=== PATIENT | female | born 1930 | race African-American/Black ===

== ENCOUNTER 2017-08-29 18:36 | Emergency (ER) | payer MEDICARE, BC ==
[~2017-08-29] VITALS: Ht 154.9 cm; Wt 72.6 kg
[2017-08-29] MEDS ORDERED: ASPIRIN 81 MG CHEW TAB PO ONE (19:15)
[2017-08-29 20:07] LABS: INR 0.97; PROTHROMBIN TIME 12.1 seconds (11.9-14.5)
[2017-08-29 20:11] LABS: BASOPHILS % 0.3 % (0.0-1.0); EOSINOPHILS % 0.3 % (0.0-6.0); HEMATOCRIT 38.6 % (34.2-44.1); HEMOGLOBIN 14.6 g/dL (12.0-16.0); LYMPHOCYTES # (AUTO) 1.4 (1.0-3.2); LYMPHOCYTES % 18.3 % (18.0-39.1); MEAN CORPUSCULAR HEMOGLOBIN 30.3 pg (28-32); MEAN CORPUSCULAR HGB CONC 37.8 g/dL (31-35); MEAN CORPUSCULAR VOLUME 80.1 fL (81-99); MONOCYTES # (AUTO) 0.3 (0.2-0.8); MONOCYTES % 4.4 % (4.4-11.3); NEUTROPHILS # (AUTO) 5.7 (2.1-6.9); NEUTROPHILS % 76.3 % (38.7-80.0); PLATELET COUNT 267 x10e3/uL (140-360); RED BLOOD COUNT 4.82 x10e6/uL (3.6-5.1); RED CELL DISTRIBUTION WIDTH 13.8 % (11.7-14.4)
[2017-08-29 20:17] LABS: ALBUMIN 3.8 g/dL (3.5-5.0); ANION GAP 18.5 mmol/L (8-16); CALCIUM 9.3 mg/dL (8.4-10.2); CREATININE, SERUM 1.08 mg/dL (0.57-1.11); MAGNESIUM 1.6 MG/DL (1.3-2.1); POTASSIUM 3.5 mmol/L (3.5-5.1)
--- NOTE | 2017-08-29 20:24 | Diagnostic Imaging Report ---
EXAMINATION: Head CT without contrast. HISTORY:Dizziness, high blood pressure. COMPARISON:None. TECHNIQUE: Multidetector axial images were obtained from the foramen magnum to the vertex without contrast. The images were reconstructed using brain and bone algorithms. Thin section brain images were reformatted into coronal and sagittal planes. Intravenous contrast: None IMAGE QUALITY: Acceptable. FINDINGS: Skull/scalp: No abnormality. Parenchyma: Nonspecific few, scattered supratentorial white matter patchy hypodensity are likely related to small vessel ischemic changes. No acute hemorrhage, mass or acute major vascular territorial infarct. Arteries: No density suggestive of thrombosis. Dural sinuses: No abnormal density suggestive of thrombosis. Ventricles: Mild compensated dilatation due to volume loss. No hydrocephalus. Extra-axial spaces: No abnormal density Brain volume: Generalized age-related cerebral volume loss. Craniocervical junction: No mass, Chiari malformation, or basilar invagination. Sella: No mass. Paranasal/mastoid sinuses: Imaged portions unremarkable. IMPRESSION: No acute intracranial abnormality, particularly no acute hemorrhage, mass or acute major vascular territorial infarct. Mild supratentorial white matter microvascular ischemic changes and generalized age-related cerebral volume loss. Signed by: Dr. Brenda Darnell M.D. on 08/29/2017 8:21 PM
--- NOTE | 2017-08-29 20:29 | Diagnostic Imaging Report ---
EXAM: CHEST SINGLE (PORTABLE), AP 1 view INDICATION: High blood pressure, dizzy COMPARISON: None FINDINGS: LINES/TUBES: None LUNGS: No consolidations or edema. PLEURA: No effusions or pneumothorax. HEART AND MEDIASTINUM: Normal size and contour. BONES AND SOFT TISSUES: No acute findings. Surgical clips right upper quadrant of the abdomen. IMPRESSION: No acute thoracic abnormality. Signed by: Dr. Enedelia Foy M.D. on 08/29/2017 8:25 PM
[2017-08-29 20:41] LABS: CREATINE KINASE MB 1.7 ng/mL (0-5.0); THYROID STIMULATING HORMONE 0.735 uIU/mL (0.350-4.940)
[2017-08-29] MEDS ORDERED: LOSARTAN-HCTZ1 EAC2 PO (21:33)
[2017-08-29] MEDS ORDERED: OMEPRAZOLE40 MG PO (21:33)
[2017-08-29] MEDS ORDERED: ARICEPT5 MG PO (21:33)
[2017-08-29] MEDS ORDERED: METOPROLOL TART50 MG PO (21:33)
[2017-08-29] MEDS ORDERED: ULTRAM50 MG PO (21:33)
[2017-08-29] MEDS ORDERED: ASPIRIN81 MG PO (21:34)
[2017-08-29 22:09] LABS: BILIRUBIN,URINE NEGATIVE (NEGATIVE); CLARITY,URINE CLEAR (CLEAR); COLOR,URINE YELLOW (YELLOW); KETONES,URINE NEGATIVE (NEGATIVE); LEUKOCYTE ESTERASE ,URINE 2+ (NEGATIVE); NITRITE,URINE NEGATIVE (NEGATIVE); PROTEIN,URINE DIPSTICK NEGATIVE (NEGATIVE); URINE UROBILINOGEN 0.2 mg/dL (0.2 - 1)
[2017-08-29 22:36] LABS: BACTERIA,URINE RARE /HPF; EPITHELIAL CELLS,URINE RARE /LPF; RBC,URINE 0-5 /HPF (0-5); TRANSITIONAL EPI CELLS,URINE FEW
[2017-08-29 22:38] VITALS: BP 133/82
== END 2017-08-29 23:40 | disposition home or self-care (01) ==
LOC: ER 18:36
DX: R42 Dizziness and giddiness (principal); R53.1 Weakness; R11.2 Nausea with vomiting, unspecified; N30.90 Cystitis, unspecified without hematuria; F03.90 Unspecified dementia, unspecified severity, without behavioral disturbance, psychotic disturbance, mood disturbance, and anxiety; I10 Essential (primary) hypertension; K21.9 Gastro-esophageal reflux disease without esophagitis
CPT/HCPCS: 36415; 70450; 71045; 80053; 81001; 82550; 82553; 83735; 83880; 84443; 84484; 85025; 85610; 85730; 87400; 93005; 99284

== ENCOUNTER 2017-11-04 13:39 | Inpatient (IN) | payer MEDICARE, BC ==
[~2017-11-04] VITALS: Ht 154.9 cm; Wt 70.4 kg
[~2017-11-04 13:39] MED LIST: ARICEPT5 MG PO; ASPIRIN81 MG PO; LOSARTAN-HCTZ1 EAC2 PO; METOPROLOL TART50 MG PO; OMEPRAZOLE40 MG PO; ULTRAM50 MG PO
--- OUTSIDE RECORDS SUMMARY | 2017-11-04 13:54 | XMS REPORT ---
[facility] Address Unknown Phone Unavailable Care Team Providers Care Procurement Officer Name Role Phone KHUSHBOO HILL Unavailable Unavailable Problems This patient has no known problems. Allergies, Adverse Reactions, Alerts This patient has no known allergies or adverse reactions. Medications This patient has no known medications. Results Test Description Test Time Test Comments Text Results Atomic Results Result Comments CT BRAIN WO [place] [address] Patient Name: GUILHERME BARROW MR #: [id number] : 1930 Age/Sex: 87/F Req #: [id number] Adm Physician: Ordered by: LAWRENCE HERNANDEZ AUTOMOTIVE MANAGER Report #: [id number] Location: ER Room/Bed: Procedure: [id number] CT/CT BRAIN WO Exam Date: 08/29/17 Exam Time: 1999 REPORT STATUS: Signed EXAMINATION: Head CT without contrast. HISTORY:Dizziness, high blood pressure. COMPARISON:None. TECHNIQUE: Multidetector axial images were obtained from the foramen magnum to the vertex without contrast. The images were reconstructed using brain and bone algorithms. Thin section brain images were reformatted into coronal and sagittal planes. Intravenous contrast: None IMAGE QUALITY: Acceptable. FINDINGS: Skull/scalp: No abnormality. Parenchyma: Nonspecific few, scattered supratentorial white matter patchy hypodensity are likely related to small vessel ischemic changes. No acute hemorrhage, mass or acute major vascular territorial infarct. Arteries: No density suggestive of thrombosis. Dural sinuses: No abnormal density suggestive of thrombosis. Ventricles: Mild compensated dilatation due to volume loss. No hydrocephalus. Extra-axial spaces: No abnormal density Brain volume: Generalized age-related cerebral volume loss. Craniocervical junction: No mass, Chiari malformation, or basilar invagination. Sella: No mass. Paranasal/mastoid sinuses: Imaged portions unremarkable. IMPRESSION: No acute intracranial abnormality, particularly no acute hemorrhage, mass or acute major vascular territorial infarct. Mild supratentorial white matter microvascular ischemic changes and generalized age -related cerebral volume loss. Signed by: Dr. Brenda Darnell M.D. on 2017 8:21 PM Dictated By: BRENDA DARNELL MD 20 Transcribed By: YOBANY on 08/29/172020 COPY TO: LAWRENCE HERNANDEZ NP CHEST SINGLE (PORTABLE) [place] [address] Patient Name: GUILHERME BARROW MR #: [id number] : 1930 Age/Sex: 87/F Req #: [id number] Adm Physician: Ordered by: LAWRENCE HERNANDEZ AUTOMOTIVE MANAGER Report # : [id number] Location: ER Room/Bed: Procedure: [id number] DX/CHEST SINGLE (PORTABLE) Exam Date: 08/29/17 Exam Time: 1957 REPORT STATUS: Signed EXAM: CHEST SINGLE (PORTABLE), AP 1 view INDICATION: High blood pressure, dizzy COMPARISON: None FINDINGS: LINES/TUBES: None LUNGS: No consolidations or edema. PLEURA: No effusions or pneumothorax. HEART AND MEDIASTINUM: Normal size and contour. BONES AND SOFT TISSUES: No acute findings. Surgical clips right upper quadrant of the abdomen. IMPRESSION: No acute thoracic abnormality. Signed by: Dr. Chris Foy M.D. on 08/29/2017 8:25 PM Dictated By: CHRIS FOY MD 24 Transcribed By: YOBANY on 08/29/172024 COPY TO: LAWRENCE HERNANDEZ NP
--- OUTSIDE RECORDS SUMMARY | 2017-11-04 13:54 | XMS REPORT | Continuity of Care Document ---
Author Author [facility] Organization [facility] Address [address] [place] [address] Phone Unavailable Care Team Providers Care Livestock Dealer Name Role Phone SONAM CORONADO (NON STAFF) PCP Insurance Providers Guarantor Leandra Ennis Address [address] [place] [address] Payer Medicare A & B Policy Number [id number] Subscriber's Name Leandra Ennis Relationship 18 Self / Same As Patient Effective Date 94 Payer [employer] Policy Number [id number] Subscriber's Name Leandra Ennis Relationship 18 Self / Same As Patient Group Number [id number] Effective Date 89 Advance Directives Directive Response Recorded Date/Time Does the patient have an advance directive? No 05/31/13 1:14pm If yes, is advance directive on file with [facility]? No 05/31/13 1:14pm If not on file with [facility] will patient provide a copy? No 05/31/13 1:14pm Do you have a Directive to Physician? No 08/29/17 8:00pm Do you have a Medical Power of Core Composer Feeder? No 08/29/17 8:00pm Do you have an out of hospital Do Not Resuscitate Order? No 08/29/17 8:00pm Do you have any special needs we should be aware of? No 08/29/17 8:00pm Do you have a support person here with you today? Yes 08/29/17 8:00pm Did patient receive Notice of Privacy Practices? Yes 08/29/17 8:00pm Did patient receive patient rights and responsibilities? Yes 08/29/17 8:00pm Problems No problem information available. Medications Current Home Medications Medication Dose Units Route Directions Days Qty Instructions Start Date Aspirin 81 Mg Tab.chew 81 Mg Oral Daily Donepezil Hcl (Aricept) 5 Mg Tablet 10 Mg Oral Bedtime 60 Tab Losartan/Hydrochlorothiazide (Losartan-Hctz 100-12.5 Mg Tab) 1 Each Tablet 1 Tab Oral Daily Metoprolol Tartrate 50 Mg Tablet 50 Mg Oral Twice A Day Omeprazole 40 Mg Capsule.dr 20 Mg Oral Daily Tramadol Hcl (Ultram) 50 Mg Tablet 50 Mg Oral Four Times Daily as needed for Pain Social History Smoking Status Start Date Stop Date Never Smoker Hospital Discharge Instructions No hospital discharge instruction information available. Plan of Care Discharge Date 08/29/17 11:40pm Disposition HOME, SELF-CARE Condition at Discharge Stable Instructions/Education Provided Hypertension Urinary Tract Infection - Women Prescriptions See Medication Section Referrals SONAM CORONADO (NON STAFF) Address: [address] [place] [address] Additional Instructions/Education REST; DRINK PLENTY OF WATER; TAKE MEDICATIONS PRESCRIBED; FOLLOW UP WITH YOUR PCP; RETURN TO ER NEEDED; Functional Status No functional status information available. Allergies, Adverse Reactions, Alerts Allergen Type Severity Reaction Status Last Updated Penicillin Allergy Unknown Active 08/29/17 Immunizations No immunization information available. Vital Signs Acute Vital Signs Vital Response Date/Time Pulse Pulse Rate (adult) 52 bpm (60 - 90) 08/29/2017 10:38pm Respiratory Rate 18 bpm (12 - 24) 08/29/2017 10:38pm Blood Pressure 133/82 mm Hg 08/29/2017 10:38pm Height 5 ft 1 in 08/29/2017 6:37pm Weight 160 lb 08/29/2017 6:37pm Body Mass Index 30.2 kg/m^2 08/29/2017 6:37pm Results Laboratory Results Test Name Result Units Flags Reference Collection Date/Time Result Date/ Time Comments White Blood Count 7.45 x10e3/uL 4.8-10.8 08/29/2017 7:00pm 08/29/2017 8 :17pm Red Blood Count 4.82 x10e6/uL 3.6-5.1 08/29/2017 7:00pm 08/29/2017 8: 17pm Hemoglobin 14.6 g/dL 12.0-16.0 08/29/2017 7:00pm 08/29/2017 8:17pm Hematocrit 38.6 % 34.2-44.1 08/29/2017 7:00pm 08/29/2017 8:17pm Mean Corpuscular Volume 80.1 fL L 81-99 08/29/2017 7:00pm 08/29/2017 8: 17pm Mean Corpuscular Hemoglobin 30.3 pg 28-32 08/29/2017 7:00pm 08/29/2017 8:17pm Mean Corpuscular Hemoglobin Concent 37.8 g/dL H 31-35 08/29/2017 7:00pm 08/29/2017 8:17pm Red Cell Distribution Width 13.8 % 11.7-14.4 08/29/2017 7:00pm 2017 8:17pm Platelet Count 267 x10e3/uL 140-360 08/29/2017 7:00pm 08/29/2017 8: 17pm Neutrophils (%) (Auto) 76.3 % 38.7-80.0 08/29/2017 7:00pm 08/29/2017 8: 17pm Lymphocytes (%) (Auto) 18.3 % 18.0-39.1 08/29/2017 7:00pm 08/29/2017 8: 17pm Monocytes (%) (Auto) 4.4 % 4.4-11.3 08/29/2017 7:00pm 08/29/2017 8: 17pm Eosinophils (%) (Auto) 0.3 % 0.0-6.0 08/29/2017 7:00pm 08/29/2017 8: 17pm Basophils (%) (Auto) 0.3 % 0.0-1.0 08/29/2017 7:00pm 08/29/2017 8:17pm IM GRANULOCYTES % 0.4 % 0.0-1.0 08/29/2017 7:00pm 08/29/2017 8:17pm Neutrophils # (Auto) 5.7 2.1-6.9 08/29/2017 7:00pm 08/29/2017 8:17pm Lymphocytes # (Auto) 1.4 1.0-3.2 08/29/2017 7:00pm 08/29/2017 8:17pm Monocytes # (Auto) 0.3 0.2-0.8 08/29/2017 7:00pm 08/29/2017 8:17pm Eosinophils # (Auto) 0.0 0.0-0.4 08/29/2017 7:00pm 08/29/2017 8:17pm Basophils # (Auto) 0.0 0.0-0.1 08/29/2017 7:00pm 08/29/2017 8:17pm Absolute Immature Granulocyte (auto 0.03 x10e3/uL 0-0.1 08/29/2017 7: 00pm 08/29/2017 8:17pm Prothrombin Time 12.1 seconds 11.9-14.5 08/29/2017 7:00pm 08/29/2017 8: 08pm Prothromb Time International Ratio 0.97 08/29/2017 7:00pm 2017 8:08pm Oral Anticoagulant Therapy INR Values: 1. Low Intensity Therapy 1.5 - 2.0 2. Moderate Intensity Therapy 2.0 - 3.0 3. High Intensity Therapy(1) 2.5 - 3.5 4. High Intensity Therapy(2) 3.0 - 4.0 5. Panic Value INR > 5.0 Activated Partial Thromboplast Time 23.0 seconds L 23.8-35.5 08/29/2017 7 :00pm 08/29/2017 8:52pm Urine Color YELLOW YELLOW 08/29/2017 9:51pm 08/29/2017 10:14pm Urine Clarity CLEAR CLEAR 08/29/2017 9:51pm 08/29/2017 10:14pm Urine Specific [place] 1.005 L 1.010-1.025 08/29/2017 9:51pm 2017 10:14pm Urine pH 7 5 - 7 08/29/2017 9:51pm 08/29/2017 10:14pm Urine Leukocyte Esterase 2+ H NEGATIVE 08/29/2017 9:51pm 08/29/2017 10 :14pm Urine Nitrite NEGATIVE NEGATIVE 08/29/2017 9:51pm 08/29/2017 10:14pm Urine Protein NEGATIVE NEGATIVE 08/29/2017 9:51pm 08/29/2017 10:14pm Urine Glucose (UA) NEGATIVE NEGATIVE 08/29/2017 9:51pm 08/29/2017 10: 14pm Urine Ketones NEGATIVE NEGATIVE 08/29/2017 9:51pm 08/29/2017 10:14pm Urine Urobilinogen 0.2 mg/dL 0.2 - 1 08/29/2017 9:51pm 08/29/2017 10: 14pm Urine Bilirubin NEGATIVE NEGATIVE 08/29/2017 9:51pm 08/29/2017 10: 14pm Urine Blood NEGATIVE NEGATIVE 08/29/2017 9:51pm 08/29/2017 10:14pm Urine WBC 11-20 /HPF H 0-5 08/29/2017 9:51pm 08/29/2017 10:36pm Urine RBC 0-5 /HPF 0-5 08/29/2017 9:51pm 08/29/2017 10:36pm Urine Bacteria RARE /HPF NONE 08/29/2017 9:51pm 08/29/2017 10:36pm Urine Epithelial Cells RARE /LPF NONE 08/29/2017 9:51pm 08/29/2017 10: 36pm Urine Transitional Epithelial Cells FEW H NONE 08/29/2017 9:51pm 08/29 10:36pm Sodium Level 136 mmol/L 136-145 08/29/2017 7:00pm 08/29/2017 8:19pm Potassium Level 3.5 mmol/L 3.5-5.1 08/29/2017 7:00pm 08/29/2017 8:19pm Chloride Level 97 mmol/L L 98-107 08/29/2017 7:00pm 08/29/2017 8:19pm Influenza Virus Types A,B Antigen NEGATIVE NEGATIVE 08/29/2017 9:51pm 08/29/2017 10:23pm Carbon Dioxide Level 24 mmol/L 22-29 08/29/2017 7:00pm 08/29/2017 8: 19pm Anion Gap 18.5 mmol/L H 8-16 08/29/2017 7:00pm 08/29/2017 8:19pm Blood Urea Nitrogen 18 mg/dL 7-08/29/2017 7:00pm 08/29/2017 8:19pm Creatinine 1.08 mg/dL 0.57-1.11 08/29/2017 7:00pm 08/29/2017 8:19pm BUN/Creatinine Ratio 17 6-25 08/29/2017 7:00pm 08/29/2017 8:19pm Estimat Glomerular Filtration Rate 58 ML/MIN L 60- 08/29/2017 7:00pm 08/2017 8:19pm Ranges were taken from the National Kidney Disease Education Program and the National Kidney Foundation literature. Reference ranges: 60 or greater: Normal 16-59 (for 3 consecutive months): Chronic kidney disease 15 or less: Kidney failure Glucose Level 172 mg/dL H 74-118 08/29/2017 7:00pm 08/29/2017 8:19pm Calcium Level 9.3 mg/dL 8.4-10.2 08/29/2017 7:00pm 08/29/2017 8:19pm Magnesium Level 1.6 MG/DL 1.3-2.1 08/29/2017 7:00pm 08/29/2017 8:19pm Total Bilirubin 0.6 mg/dL 0.2-1.2 08/29/2017 7:00pm 08/29/2017 8:19pm Aspartate Amino Transf (AST/SGOT) 22 IU/L 5-34 08/29/2017 7:00pm 2017 8:19pm Alanine Aminotransferase (ALT/SGPT) 11 IU/L 0-55 08/29/2017 7:00pm 08/2017 8:19pm Total Protein 7.6 g/dL 6.5-8.1 08/29/2017 7:00pm 08/29/2017 8:19pm Albumin 3.8 g/dL 3.5-5.0 08/29/2017 7:00pm 08/29/2017 8:19pm Globulin 3.8 g/dL H 2.3-3.5 08/29/2017 7:00pm 08/29/2017 8:19pm Albumin/Globulin Ratio 1.0 0.8-2.0 08/29/2017 7:00pm 08/29/2017 8: 19pm Alkaline Phosphatase 84 IU/L 40-150 08/29/2017 7:00pm 08/29/2017 8: 19pm B-Type Natriuretic Peptide 12.4 pg/mL 0-100 08/29/2017 7:00pm 2017 8:43pm Creatine Kinase 70 IU/L 29-168 08/29/2017 7:00pm 08/29/2017 8:19pm Creatine Kinase MB 1.70 ng/mL 0-5.0 08/29/2017 7:00pm 08/29/2017 8: 42pm Troponin I 0.013 ng/mL 0-0.300 08/29/2017 7:00pm 08/29/2017 8:42pm Thyroid Stimulating Hormone (TSH) 0.735 uIU/mL 0.350-4.940 08/29/2017 7: 00pm 08/29/2017 8:42pm Procedures Procedure Status Date Provider(s) Computed tomography of brain without radiopaque contrast Active 08/29/17 LAWRENCE HERNANDEZ ROASTER OPERATOR Encounters Encounter Location Arrival/Admit Date Discharge/Depart Date Attending Provider Departed Emergency Room [facility] 08/29/17 6:36pm 11:40pm KHUSHBOO HILL MD
[2017-11-04] MEDS ORDERED: ENALAPRILAT IV INJ 1.25 MG/ML VIAL IV STA (14:09)
[2017-11-04 14:56] LABS: BASOPHILS % 0.5 % (0.0-1.0); EOSINOPHILS # (AUTO) 0.1 (0.0-0.4); EOSINOPHILS % 0.9 % (0.0-6.0); HEMATOCRIT 37.6 % (34.2-44.1); HEMOGLOBIN 14.1 g/dL (12.0-16.0); LYMPHOCYTES % 31.7 % (18.0-39.1); MEAN CORPUSCULAR HEMOGLOBIN 30.3 pg (28-32); MEAN CORPUSCULAR HGB CONC 37.5 g/dL (31-35); MEAN CORPUSCULAR VOLUME 80.9 fL (81-99); MONOCYTES # (AUTO) 0.5 (0.2-0.8); MONOCYTES % 8.3 % (4.4-11.3); NEUTROPHILS # (AUTO) 3.7 (2.1-6.9); NEUTROPHILS % 58.4 % (38.7-80.0); PLATELET COUNT 234 x10e3/uL (140-360); RED BLOOD COUNT 4.65 x10e6/uL (3.6-5.1); RED CELL DISTRIBUTION WIDTH 13.5 % (11.7-14.4)
[2017-11-04 15:17] LABS: ALANINE AMINOTRANSFERASE 8 IU/L (0-55); ALBUMIN 3.2 g/dL (3.5-5.0); ANION GAP 11.6 mmol/L (8-16); BLOOD UREA NITROGEN 13 mg/dL (7-26); BUN/CREATININE RATIO 14 (6-25); CALCIUM 9.4 mg/dL (8.4-10.2); CARBON DIOXIDE 28 mmol/L (22-29); CHLORIDE 96 mmol/L (98-107); EST GLOMERULAR FILTRATION RATE > 60 ML/MIN (60-); GLUCOSE 134 mg/dL (74-118); MAGNESIUM 1.6 MG/DL (1.3-2.1); PHOSPHORUS 2.5 MG/DL (2.3-4.7); POTASSIUM 3.6 mmol/L (3.5-5.1); SODIUM 132 mmol/L (136-145)
[2017-11-04 15:18] LABS: ALBUMIN/GLOBULIN RATIO 0.9 (0.8-2.0); ALKALINE PHOSPHATASE 78 IU/L (40-150); CHOL/HDL RATIO 3.3 (3.0-3.6); CHOLESTEROL 173 MD/DL (0-199); HDL CHOLESTEROL 53 MG/DL (40-60); LDL CHOLESTEROL 103 MG/DL (60-130); TRIGLYCERIDES 87 MG/DL (0-149)
[2017-11-04 15:38] LABS: THYROID STIMULATING HORMONE 0.578 uIU/mL (0.350-4.940)
[2017-11-04] MEDS ORDERED: SODIUM CHLORIDE FLUSH 10 ML SYR INJ PRN (16:00)
[2017-11-04 16:32] LABS: CLARITY,URINE CLEAR (CLEAR); COLOR,URINE YELLOW (YELLOW); LEUKOCYTE ESTERASE ,URINE NEGATIVE (NEGATIVE); NITRITE,URINE NEGATIVE (NEGATIVE); PROTEIN,URINE DIPSTICK NEGATIVE (NEGATIVE)
[2017-11-04 16:33] LABS: BILIRUBIN,URINE NEGATIVE (NEGATIVE); KETONES,URINE NEGATIVE (NEGATIVE); URINE UROBILINOGEN 0.2 mg/dL (0.2 - 1)
[2017-11-04] MEDS: SODIUM CHLORIDE 0.9% 1000ML 1,000 ML IV SCH (16:36)
[2017-11-04 16:42] LABS: EPITHELIAL CELLS,URINE FEW /LPF
[2017-11-04 16:43] LABS: WBC,URINE (MAN) 0-5 /HPF (0-5)
[2017-11-04 16:44] LABS: RBC,URINE 0-5 /HPF (0-5)
[2017-11-04 20:00] VITALS: BP 165/78
[2017-11-04 21:30] VITALS: BP 165/78
[2017-11-04 22:00] VITALS: BP 165/78
[2017-11-05] VITALS (8 sets, daily range): BP systolic 132–166; BP diastolic 61–75
[2017-11-05] MEDS: SODIUM CHLORIDE 0.9% 1000ML 1,000 ML IV SCH (02:06)
[2017-11-05 07:16] LABS: BASOPHILS % 0.4 % (0.0-1.0); EOSINOPHILS # (AUTO) 0.1 (0.0-0.4); EOSINOPHILS % 1.8 % (0.0-6.0); HEMOGLOBIN 13.3 g/dL (12.0-16.0); LYMPHOCYTES # (AUTO) 2.4 (1.0-3.2); MEAN CORPUSCULAR HEMOGLOBIN 30.6 pg (28-32); MEAN CORPUSCULAR VOLUME 80.5 fL (81-99); MONOCYTES # (AUTO) 0.7 (0.2-0.8); MONOCYTES % 10.2 % (4.4-11.3); NEUTROPHILS # (AUTO) 3.6 (2.1-6.9); NEUTROPHILS % 52.5 % (38.7-80.0); PLATELET COUNT 272 x10e3/uL (140-360); RED BLOOD COUNT 4.35 x10e6/uL (3.6-5.1); RED CELL DISTRIBUTION WIDTH 13.4 % (11.7-14.4)
[2017-11-05 07:34] LABS: ANION GAP 10.4 mmol/L (8-16); BLOOD UREA NITROGEN 12 mg/dL (7-26); BUN/CREATININE RATIO 14 (6-25); CALCIUM 9.2 mg/dL (8.4-10.2); CARBON DIOXIDE 28 mmol/L (22-29); CHLORIDE 101 mmol/L (98-107); CREATININE, SERUM 0.87 mg/dL (0.57-1.11); EST GLOMERULAR FILTRATION RATE > 60 ML/MIN (60-); GLUCOSE 102 mg/dL (74-118); MAGNESIUM 1.4 MG/DL (1.3-2.1); PHOSPHORUS 2.7 MG/DL (2.3-4.7); POTASSIUM 3.4 mmol/L (3.5-5.1); SODIUM 136 mmol/L (136-145)
[2017-11-05] MEDS: ASPIRIN 81 MG CHEW TAB PO SCH (08:36)
[2017-11-05] MEDS ORDERED: LOSARTAN POTASSIUM 25 MG TAB PO SCH (09:00)
--- NOTE | 2017-11-05 10:47 | History and Physical ---
HISTORY OF PRESENT ILLNESS: Ms. Leandra Ennis is an 87-year-old patient. Her PCP is Dr. Angel Alcantara. She had been going to [facility] until [place] flooded the hospital. She has presented here to the emergency room yesterday with elevated pressure and low heart rate. Her daughter stated that she lives with her and for the last 3 weeks she had been complaining of feeling weak, back pain and pain in her lower extremities. Last weekend, her blood pressure was tested, and her blood pressure was 230/110, and her heart rate was in the 40s. She was feeling fine later in the week and did not present with any complaints. But yesterday, her neighbor came and checked her pressure. Again, it was 230/110, and her heart rate was low. Therefore, she was brought to the emergency room. REVIEW OF SYSTEMS: She denied headache, chest pain, shortness of breath, frequency of urine, loss of appetite or any other systemic complaint. She had no headache, no involuntary movements, no changes in her vision, no episodes of blackout or syncope. The only systemic complaint she did have was weakness and occasional pain in her lower back and lower extremities. PAST MEDICAL HISTORY: Positive for hypertension, dementia, gastroesophageal reflux disease, and lower back pain. FAMILY HISTORY: Positive for father having prostate cancer, and mother had high blood pressure and heart disease. She denied any history of diabetes. SOCIAL HISTORY: She is with children. She denied any history of smoking. PAST SURGICAL HISTORY: Positive for back surgeries 15 to 20 years ago and knee replacement again 10 to 15 years ago. MEDICATIONS: Reviewed. LABS: Normal CBC. Mildly low potassium. Normal renal function. Normal sugars. Normal liver functions. Normal TSH and cholesterol. Troponin was done once, and that was also normal. BNP is also normal. PHYSICAL EXAMINATION: Vitals: She was afebrile. Respiratory rate was 20. Pulse was 60. Pressure was 145/60. She was saturating 100% on room air. general awake,alert,oriented and in no distress EENT oral mucosa moist neck supple chest clear to auscultation CVS regular heart rate with systolic murmur ABD soft non tender extremeties moving all no pedal edema ASSESSMENT AND PLAN 1. Hypertension. She is being monitored here. Her pressures have been controlled here. 2. Bradycardia. She is still having low pulse. Her pulse is mostly between 40 and 50. However, she is asymptomatic. 3. Dementia. She is on Aricept. 4. Weakness. So far, her urine and her blood work are not showing any sign of infection or dehydration. She is bradycardic. Therefore, cardiology has been requested to see her. The plan is to continue to follow her and follow any cardiology workup if recommended. Job#: [id number] DEANDRE WILSON
[2017-11-05 11:11] LABS: CREATINE KINASE 55 IU/L (29-168)
[2017-11-05] MEDS: PANTOPRAZOLE 40 MG 10ML VIAL IV SCH (13:49)
--- NOTE | 2017-11-05 13:54 | Consultation ---
DATE OF CONSULTATION: November 05, 2017 CARDIAC CONSULTATION REASON FOR CONSULTATION: Weakness and dizziness. HISTORY: An 87-year-old lady who is hypertensive for many years duration. She was not feeling well for a few days. Her weakness was becoming worse, and she was unable to take care of herself. She came to the emergency room. Her CT head was negative. Her BNP is normal. Her cardiac enzymes are normal and her TSH is normal. It was noted her heart rate was in the 50s. Patient admitted for further management. Cardiac consultation is obtained. Patient is followed by Dr. Lopez. She is known with hypertension. She is forgetful. She is on several medications. Her activities are limited by her "arthritis like symptoms". She is forgetful as per her daughter. She stays home with her who is 91 years old. They take care of each other. She denied having any anginal chest pain. She admitted to weakness, but no syncope or presyncope. She does have easy fatigability. "I'm not doing well." REVIEW OF SYSTEMS: Was extensive to all systems. Will be summarized for clarity. CARDIAC: No angina. Shortness of breath on exertion. Easy fatigability. No syncope or presyncope. PULMONARY: No cough. No hemoptysis. No pleuritic chest pain. No pericarditic chest pain. GI: Constipation. Some times diarrhea. Occasional nausea. No vomiting. : Incontinence. Stress incontinence. No hematuria. Currently, no dysuria. MUSCULOSKELETAL: Aches and pains. NEUROLOGICAL: Patient is a little bit forgetful. No localized weakness. ENDOCRINE: No history of diabetes. HEMATOLOGY: No bleeding or tendency to bleed. Others, tendency to fall. SOCIAL HISTORY: Staying with her . She is . She is a nonsmoker and non-alcohol drinker. HOME MEDICATIONS: Long list includin. Aspirin 81 mg a day. 2. Losartan with hydrochlorothiazide 125 one tablet a day. 3. Lopressor 50 mg twice a day. 4. Aricept 5 mg a day. 5. Protonix 40 mg a day. 6. Tramadol 50 mg a day. ALLERGIES: PENICILLIN. PAST MEDICAL HISTORY 1. Hypertension. 2. Degenerative joint disease. 3. Some form of eye surgery at a younger age. 4. Forgetful. 5. Hysterectomy. 6. Left knee surgery. FAMILY HISTORY: No family history of premature coronary artery disease. PHYSICAL EXAMINATION VITALS: Height of 5 feet 1 inches, weight of 155 pounds. Blood pressure 140/60, heart rate of 50, respiratory rate of 18, temperature of 96 Fahrenheit. HEENT: Pupils are reactive. NECK: No elevation of jugular venous pulsation. Carotid bruit bilaterally. CHEST: Decreased air entry but clear to auscultation and percussion. HEART: PMI in the 5th left intercostal space. Ejection systolic murmur in the 2nd and 3rd intercostal space. ABDOMEN: Soft with good bowel sounds. EXTREMITIES: There is a scar over the left knee, minimal edema. NEUROLOGIC: Awake and alert. No motor deficits. LAB DATA: Chest x-ray showed no major abnormality. CT of brain with chronic changes. No acute changes. BNP of 38. First set of cardiac enzymes normal. EKG showing sinus bradycardia, PACs and LVH. Lipid profile showed triglycerides of 87, cholesterol 173, HDL of 53, LDL of 103. TSH of 0.6. IMPRESSION AND PLAN 1. Hypertension. 2. Weakness, unexplained. 3. Relative bradycardia. 4. Aortic and carotid murmur. 5. Old age. 6. Forgetful. 7. Degenerative joint disease. 8. Debility. From a cardiac point of view, will keep the patient on telemetry. Will stop her Lopressor. Will increase her losartan. Will keep her on telemetry. Will check an echocardiogram and will check a carotid Doppler. Case discussed with the patient, her and her daughter who is at bedside. Questions are answered. Job#: [id number] ASHLEY
[2017-11-05] MEDS: LOSARTAN POTASSIUM 25 MG TAB PO SCH (16:20)
[2017-11-06] VITALS: BP 152/68
[2017-11-06 08:02] VITALS: BP 140/65
[2017-11-06] MEDS: LOSARTAN POTASSIUM 25 MG TAB PO SCH (08:11)
[2017-11-06 08:31] LABS: ANION GAP 10.2 mmol/L (8-16); BLOOD UREA NITROGEN 11 mg/dL (7-26); BUN/CREATININE RATIO 14 (6-25); CARBON DIOXIDE 26 mmol/L (22-29); CHLORIDE 101 mmol/L (98-107); CREATININE, SERUM 0.79 mg/dL (0.57-1.11); EST GLOMERULAR FILTRATION RATE > 60 ML/MIN (60-); GLUCOSE 105 mg/dL (74-118); POTASSIUM 3.2 mmol/L (3.5-5.1); SODIUM 134 mmol/L (136-145)
[2017-11-06] MEDS: PANTOPRAZOLE 40 MG 10ML VIAL IV SCH (09:13)
[2017-11-06] MEDS: ASPIRIN 81 MG CHEW TAB PO SCH (09:13)
[2017-11-06] MEDS ORDERED: POTASSIUM CHLORIDE 20MEQ/100ML 100 ML IV ONE (09:45)
--- NOTE | 2017-11-12 16:07 | Discharge Summary ---
The patient was admitted with a complaint of weakness, bradycardia and hypertension. __DISCHARGE DIAGNOSES 1. Hypertension. 2. Bradycardia. 3. Dementia. 4. Weakness. 5. Gastroesophageal reflux. Patient was brought into the emergency room by her daughter with complaint of weakness, back pain, and pain in her lower extremities since her last few days, and on the weekend before admission her pressure had been tested at home and it was 230/110 and her heart rate was in the 40s. At this time she had been feeling weak for several days, and the day of admission again her neighbor had gone and checked on her and found her pressure to be 230/110 and she had bradycardia. So, she was brought to the emergency room. During the course of admission, she had improved. Her pressure was better controlled. Heart rate was mostly in the 50s to 60s, and she had no complaints of back pain, headache or any other systemic complaints on the day of discharge. Her vital signs were temperature of 96, pressure of 140/65, respiratory rate 18 and pulse of 57. She was awake, alert, oriented x3. She had no icterus. Her oral mucosa was moist, and her neck was supple. Her chest was clear to auscultation. Abdomen was soft, nontender. Her heart rate was regular with no murmurs. She was moving all her extremities, and her skin was pink with no ulcers. She was considered stable to go home after cardiology work . She underwent a carotid Doppler and echocardiogram and was cleared for discharge by Cardiology. Her metoprolol on discharge had been held, and her losartan dose was also adjusted according to her blood pressure. She was hypokalemic. Therefore, she was given potassium on discharge and asked to follow up with her PCP with a potassium level done at the time of the visit. __DISCHARGE DIAGNOSES 1. Hypertension. 2. Bradycardia. 3. Gastroesophageal reflux. 4. Back pain. 5. Weakness. 6. Hypokalemia. VENUS GAMINO M.D. Job#: [id number] EV
== END 2017-11-06 11:15 | disposition home or self-care (01) | DRG 305 ==
LOC: ER 13:39 → ERHOLD 16:03 → MED/SURG 20:44
PROVIDERS: ADMIT Internal Medicine; ATTEND Internal Medicine
DX: I10 Essential (primary) hypertension (principal); R00.1 Bradycardia, unspecified; E87.6 Hypokalemia; F03.90 Unspecified dementia, unspecified severity, without behavioral disturbance, psychotic disturbance, mood disturbance, and anxiety; M19.90 Unspecified osteoarthritis, unspecified site; K21.9 Gastro-esophageal reflux disease without esophagitis; M54.5 Low back pain; R53.81 Other malaise; R53.1 Weakness
CPT/HCPCS: 36415; 80048; 80053; 80061; 81001; 82550; 82553; 83735; 83880; 84100; 84443; 84484; 85025; 93005; 93306; 93880; 97139; 99284; J7030